=== PATIENT | male | born 1960 | race Caucasian/White ===

== ENCOUNTER → 2024-03-29 | Day surgery (SDC) | payer MEDICAID ==
[~2024-03-29] VITALS: Ht 172.7 cm; Wt 59.0 kg
[~2024-03-29] MED LIST: ACETAMINOPHEN 325MG TABLET PO PRN; ALBU18HF2 IH; ASPI-986 PO; BUPR-74 PO; DIPHENHYDRAMINE 50MG/ML VIAL ONE; FENTANYL CITRATE/PF 50MCG/ML 2ML VIAL ONE; FLUT1AER IH; GABA-290 PO; HEPARIN 1000 UNITS/ML 10ML ONE; IODIXANOL 320MG/ML 100 ML BOTTLE IV ONE; LIDOCAINE HCL 1% 20ML VIAL ONE; MIDAZOLAM HCL 2 MG/2 ML VIAL ONE; PRED2.5T4 PO
[2024-03-29 07:50] LABS: EOSINOPHILS % 3.9 % (0.0-5.0); HEMATOCRIT. 44.8 % (42.0-52.0); HEMOGLOBIN. 15.3 g/dL (14.0-18.0); LYMPHOCYTES % 35.7 % (20.0-50.0); MEAN CORPUSCULAR HEMOGLOBIN 29.1 pg (28.0-32.0); MEAN CORPUSCULAR HGB CONC 34.1 g/dL (31.0-37.0); MEAN CORPUSCULAR VOLUME 85.3 fL (80.0-94.0); MEAN PLATELET VOLUME 7.4 fl (7.4-10.4); MONOCYTES % 7.8 % (2.0-8.0); NEUTROPHILS % 51.6 % (40.0-76.0); PLATELET 323 x1000/uL (130-400); RED BLOOD CELL COUNT 5.26 mill/uL (4.7-6.1); RED CELL DISTRIBUTION WIDTH 13.4 % (11.6-14.6); WHITE BLOOD COUNT 6.9 x1000/uL (4.5-11.0)
[2024-03-29 07:53] LABS: INR 0.9; PARTIAL THROMBOPLASTIN TIME 26.8 sec (23.4-31.0); PROTHROMBIN TIME 10.3 sec (9.6-11.0)
[2024-03-29 08:00] LABS: CHLORIDE 106 mEq/L (98-107); SODIUM 140 mEq/L (136-145)
[2024-03-29 08:01] LABS: CALCIUM 9.5 mg/dL (8.7-10.4); CARBON DIOXIDE 29 mEq/L (21-32)
[2024-03-29 08:06] LABS: CREATININE 0.9 mg/dL (0.6-1.3); GLUCOSE 99 mg/dL (70-105); UREA NITROGEN BLOOD 10 mg/dL (9-23)
== END | disposition home or self-care (01) ==
LOC: CCL 07:05
PROVIDERS: ATTEND Internal Medicine Cardiovascular Disease
DX: R94.39 Abnormal result of other cardiovascular function study (principal); I34.0 Nonrheumatic mitral (valve) insufficiency; I10 Essential (primary) hypertension; F17.210 Nicotine dependence, cigarettes, uncomplicated; Z79.51 Long term (current) use of inhaled steroids; Z79.52 Long term (current) use of systemic steroids; Z79.82 Long term (current) use of aspirin; Z79.01 Long term (current) use of anticoagulants; Z79.899 Other long term (current) drug therapy; Z98.890 Other specified postprocedural states
CPT/HCPCS: 93458; 80048; 85025; 85610; 85730; 36415; 93005; C1893; C1769 ×2; J3010; Q9967; J1200; J1644 ×2; J3490; J2250; C1887; 99152; 99153; G0500